=== PATIENT | female | born 1960 | race Asian ===

== ENCOUNTER 2024-10-07 06:46 | Day surgery (SDC) | payer OTHER, SELFPAY ==
[2024-10-07] VITALS (8 sets, daily range): BP systolic 131–155; BP diastolic 70–81; PULSE 66–74; RESP 16; TEMP 36.6; O2SAT 98–100
--- OUTSIDE RECORDS SUMMARY | 2024-10-07 06:50 | XMS_ITS | Clinical Summary ---
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 0 019 Active Pgpcc-4-ZGF-EPA-Fish Oil 1,000 mg (120 mg-180 mg) cap Take 1 capsule by mouth. 0 019 Active rosuvastatin (CRESTOR) 5 mg tabletIndications:Diabe catalina mellitus without complication (HC),Pure hypercholesterolemia Take 1 Tablet (5 mg) by mouth at bedtime. 90 Tablet 3 024 Active polyethylene glycol-electrolyte (GOLYTELY) 236-22.74-6.74 -5.86 gram suspensionIndications:E ncounter for screening colonoscopy Drink 2 liters the day before colonoscopy and 2 liters 6 hours before colonoscopy appointment 4000 mL 024 Active Active Problems Problem Noted Date Diagnosed Date Pure hypercholesterolemia 02/01/2024 Pap smear for cervical cancer screening 03/06/20 23 Overview (03/06/2023): 01/30/2023: NIL/HPV negative Plan: routine screening Routine adult health maintenance 05/02/2014 Overview (05/02/2014): Colonoscopy 04/2014 normal repeat in 10 years Type II or unspecified type diabetes mellitus without mention of complication, not stated as uncontrolled 02/14/2006 Immunizations Name Administration Dates Next Due AMB Influenza, IIV3 (Age >=3 years)(Flu Clinic Only) 07/26/2008 COVID-19 vaccine (Moderna 100mcg/0.5mL) PF, MDV 01/23/2021,12/26/2020 COVID-19 vaccine (Pfizer-Bio NTech 30mcg/0.3mL) PF, MDV 09/03/2021 HepA-HepB (Twinrix) 04/30/2015,03/06/2014,2002 Influenza Virus, Unspecified 06/22/2017 Influenza, IIV3 (Age >=3 years) 10/27/19 13,10/23/2010,09/01/2007,2005 Influenza,CCIIV4 PRESERV FREE 07/13/2018 Td (Age >=7 Years) 03/02/2003 Tdap 03/06/2014 Typhoid (injectable) 03/02/2003 Zoster (Shingrix-RZV, recombinant) 02/01/2024 Family History Medical History Relation Name Comments Other Sister brain cancer Cancer-breast No Family History Cancer-ovarian No Family History Relation Name Status Comments Mother Sister Social History Tobacco Use Types Packs/Day Years Used Date Smoking Tobacco: Never Smokeless Tobacco: Never Tobacco Cessation:Counseling Given: Yes Alcohol Use Standard Drinks/Week Comments No 0 (1 standard drink = 0.6 oz pur e alcohol) PHQ-2 Answer Date Recorded PHQ-2 TOTAL SCORE 0 02/01/2024 Social Connections Answer Date Recorded Frequency of Communication with Friends and Fami ly Not on file 2021 Financial Resource Strain Answer Date R ecorded Difficulty of Paying Living Expenses Not on file 2021 Difficulty of Paying Living Expenses Not on file 2021 Comments No Sex and Gender Information Value Date Recorded Sex Assigned at Not on file 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 Gender Identity Not on file Sexual Orientation Not on file Obstetrics History Para Term AB IAB SAB Ectopic Multiple Livin g Live Births 3 3 3 Date Outcome GA Total Labor Labor/2nd/3rd Weight Sex Type Anes PTL Angelica A1 A5 Name Clin Term Term Term Last Filed Vital Signs Vital Sign Reading Time Taken Comments Blood Pressure 111/59 03/29/2024 10:02 AM CDT Pulse 64 03/29/2024 10:02 AM CDT Temperature 36.9 C (98.5 F) 03/29/2024 8:53 AM CDT Respiratory Rate 14 03/29/2024 10:02 AM CDT Oxygen Saturation 97% 03/29/2024 10:02 AM CDT Inhaled Oxygen Concentration - - Weight 50.2 kg (110 lb 9.6 oz) 02/01/2024 10:19 AM CDT Height 146 cm (4' 9.48) 02/01/2024 10:19 AM CDT Body Mass Index 23.54 02/01/2024 10:19 AM CDT Plan of Treatment Health Maintenance Due Date Last Done Comments Pneumococcal series for age 6-49 (1 of 2 - PCV) 1966 HIV for age 15-65 1975 Tetanus booster 03/06/2024 03/06/2014, 03/02/2003 Zoster (shingles) series for age 50+ (2 of 2) 03/28/2024 02/01/2024 COVID-19 vaccine series ( season) 2024 09/03/2021, 01/23/2021, 12/26/2020 Influenza for age 50-64 06/05/2024 07/13/20 18, 06/22/2017, 10/27/2012, Additional history exists BMI (ht and wt on same day) for age 18+ 01/31/2025 02/01/2024, 01/30/2023, 01/28/2022, Additional history exists Depression screening for age 12+ 01/31/2025 02/01/2024, 02/01/2024, 01/30/2023, Additional history exists Mammogram for age 45-75 02/01/2025 02/02/20 24, 01/30/2023, 01/28/2022, Additional history exists Pap test for age 21-65 01/31/2028 3, 01/30/2023, 12/20/2019, Additional history exists Lipids for age 45-75 01/31/2029 02/01/2024, 01/30/2023, 01/28/2022, Additional history exists Colonoscopy through age 75 03/29/203403/294, 03/29/2024, 03/29/2024, Additional history exists RSV vaccine for adults or (1 - 1-dose 75+ series) 2035 Tdap Completed 03/06/2014 Hepatitis C screening for ag e 18-79 Completed 01/28/2022 Procedures Procedure Name Priority Date/Time Associated Diagnosis Comments COLONOSCOPY SCREENING Routine 03/29/2024 8:25 AM CDT Colon cancer screening XR MAMMO BILAT SCREENING Routine 02/02/2024 4:09 PM CDT Visit for screening mammogram LIPID PANEL W REFLEX MEASURED LDL Routine 02/01/2024 10:07 AM CDT Pure hypercholesterolemia HPV HIGH RISK Routine 01/30/2023 8:16 AM CDT Pap smear for cervical cancer screening ANTI HCV Routine 01/28/2022 10:12 AM CDT Encounter for hepatitis C screening test for low risk patient from Last 3 Months or Most Recently Relevant to Health Maintenance Results * COLONOSCOPY (03/29/2024 8:32 AM CDT) 03/29/2024 8:32 AM CDT Narrative Transcriptions Rogers Kong MD - 03/29/2024 9:56 AM CDT Patient Name: Cesar Vogel Procedure Date: 03/29/2024 Gender: Female Date of : 1960 Admit Type: Outpatient Procedure: Colonoscopy Proceduralist: Rogers Kong MD , Odilia Cam (Nurse), Samia Ha, HENRY (Nurse) Referring MD: Dasia Schulte Indications/Pre-Op Diagnosis: Screening for colorectal malignant neoplasm, Last colonoscopy: April 2014 Medications: Fentanyl 100 micrograms IV, Midazolam 2 mgIV Procedure Description: The patient had risks, benefits and alternatives explained to andgave informed consent. The patient had a stable cardiopulmonary status and judged an adequate candidate for conscious sedation. The endoscope PCF-H190L [id number] was passed through the anus andadvanced to the cecum, identified by appendiceal orifice and ileocecal valve.The colonoscopy was performed without difficulty. The patient toleratedthe procedure well. The quality of the bowel preparation was good. The ileocecal valve, appendiceal orifice, and rectum were photographed. Complications: No immediate complications. Estimated Blood Loss & Specimen: Estimated blood loss: none. Specimen collected - None Findings: The perianal and digital rectal examinations were normal. The entire examined colon appeared normal. Impressions/Post-Op Diagnosis: - The entire examined colon is normal. - No specimens collected. Recommendation: - Patient has a contact number available for emergencies. The signsand symptoms of potential delayed complications were discussed with the patient. Return to normal activities tomorrow. Written discharge instructions were provided to the patient. - Resume previous diet. - Continue present medications. - Repeat colonoscopy in 10 years for screening purposes. Moderate Sedation: A time out was performed before the procedure. Moderate (conscious) sedation was administered by the endoscopy nurse and supervised bythe endoscopist. The following parameters were monitored: oxygensaturation, heart rate, blood pressure, EKG, CO2, respiratory rate, adequacy of pulmonary ventilation and reponse to care. Please refer to the patient's medical record flowsheets and nursing notes for moderate sedation details. Total physician intraservice time was 16 minutes. Rogers Kong MD 03/29/2024 9:45:44 AM This report has been signed electronically. Note Initiated On: 03/29/2024 8:32 AM Procedure Code(s): --- Professional --- 70655, Colonoscopy, flexible; diagnostic, including collection of specimen(s) bybrushing or washing, when performed (separateprocedure) Diagnosis Code(s): --- Professional --- Z12.11, Encounter for screening formalignant neoplasm of colon CPT copyright 2022 [employer]. All rights reserved. The codes documented in this report are preliminary and upon dock supervisor reviewmay be revised to meet current compliance requirements. Scope In: 9:21:59 AM Scope Withdrawal Time 0 hours 7 minutes 19 seconds Scope Out: 9:35:11 AM Rogers Kong MD PROCEDURE ORD Edited Re sult - Final * XR MAMMO BILAT SCREENING (02/02/2024 4:09 PM CDT) Anatomical Region Laterality Modality BREASTS, Breast Left, Breast Right Bilateral Mammography Impressions 02/03/2024 2:42 PM CDT There is no radiographic evidence for malignancy. Recommend annual mammograms. MAMMOGRAM ASSESSMENT: ACR 1 Negative PATIENTS: You will also receive a letter with your examination results in an easy to read format. If you have questions about your results, please contact your referring provider. Narrative 02/03/2024 2:42 PM CDT For Patients: As a result of the Cures Act, medical imaging exams and procedure reports are released immediately into your electronic medical record. You may view this report before your referring provider. If you have questions, please contact your health care provider. XR MAMMO BILAT SCREENING [[id number]] CLINICAL HISTORY: This is an asymptomatic 63 y.o. patient. INDICATION FOR EXAM: Mammogram Screening. TECHNIQUE: CC & MLO views were obtained. This study was evaluated with the assistance of Computer-Aided Detection. COMPARISON FILM: Yes 01/30/23 [facility] 01/28/22 [facility] FINDINGS: The breasts are heterogeneously dense, which may obscure small masses. There are no dominant masses, suspicious micro calcifications or areas of architectural distortion. Luz Angelica Shaqra DO MAMMO Final Result * (ABNORMAL) LIPID PANEL W REFLEX MEASURED LDL (02/01/2024 10:07 AM CDT) CHOLESTEROL,TOTAL 196 100 - 199 mg/dL 02/01/2024 7:53 PM CDT [facility] Comment: Cholesterol, Total Reference Ranges Desirable <200 mg/dL Borderline 200-239 mg/dL High >=240 mg/dL TRIGLYCERIDES 113 <150 mg/dL 02/01/2024 7:53 PM CDT [facility] HDL CHOLESTEROL 46 >40 mg/dL 7:53 PM CDT [facility] NON-HDL CHOLESTEROL 150(H) <145 mg/dl 02/01/2024 7:53 PM CDT [facility] CHOL/HDL RATIO 4.26 <4.50 02/01/2024 7:53 PM CDT [facility] LDL CHOLESTEROL 127 <=130 mg/dL 02/01/2024 7:53 PM CDT [facility] VLDL CHOLESTEROL 23 <=30 mg/dL 02/01/2024 7:53 PM CDT [facility] PROVIDER ORDERED STATUS RANDOM 02/01/2024 7:53 PM CDT [facility] Blood BLOOD SPECIMEN / Unknown Butterfly / Unknown 02/01/2024 10:07 AM CDT 02/01/2024 10:08 AM CDT Dasia Schulte MD CHEMISTRY Fi nal Result [facility] [address] [place], [place] [address] * HPV HIGH RISK (01/30/2023 8:16 AM CDT) TYPE 16 Negative Negative 02/04/2023 1:46 PM CDT [facility] TYPE 18 Negative Negative 02/04/2023 1:46 PM CDT [facility] OTHER HIGH RISK TYPES Negative Negative 02/04/2023 1:46 PM CDT [facility] Other (Cervical) Non-Blood / Unknown 01/30/2023 8:16 AM CDT 02/02/2023 3:56 PM CDT Narrative [facility] - 02/04/2023 1:46 PM CDT HPV types 16, 18, 31, 33, 35, 39, 45, 51, 52, 56, 58, 59, 66 and 68 DNA were undetectable or below the pre-set threshold. Methodology: Hanh Coco 4800 HPV Test Njuice Petekeon STONE MICROBIOLOGY Final Result [facility] [address] [place] [address], * ANTI HCV (01/28/2022 10:12 AM CDT) HEPATITIS C ANTIBODY Non-React silvia Non-React silvia 01/28/2022 6:37 PM CDT [facility] Comment:Antibodies to HCV no t detected; does not exclude the possibility of exposure to HCV. Blood BLOOD SPECIMEN / Unknown Venipuncture / Unknown 01/28/2022 10:12 AM CDT 01/28/2022 10:13 AM CDT Njuice Petekeon STONE SEND OUTS Final Result Performing Organization Address City/[facility]/ZIP Co de Phone Number [facility] [address] [place] [address], from Last 3 Months or Most Recently Relevant to Health Maintenance Insurance [employer] [id number] [employer] Care Teams Propeller Driven Airplane Mechanic Relationship Specialty Start Date End Date Luz Reis DO [address] [place] [address] PCP - General Family Practice 10/16/23
[2024-10-07] MEDS: BUPIVACAINE 0.5% 30 ML INJECTION (07:15)
[2024-10-07] MEDS: LIDOCAINE 1%-EPI 1:100,000 20 ML INFILTRATI (07:15)
--- NOTE | 2024-10-07 07:16 | W.PM.H&PU ---
History & Physical Update History & Physical Update H&P Reviewed and patient assessed: No changes noted
--- NOTE | 2024-10-07 07:16 | PM.ORPRC ---
Procedure Note Date of procedure: 10/07/24 Procedure: PREOPERATIVE DIAGNOSIS: 1. Left carpal tunnel syndrome POSTOPERATIVE DIAGNOSIS: 1. Left carpal tunnel syndrome PROCEDURE: 1. Left open carpal tunnel release SURGEON: Jhonathan Evans MD. DIRECTOR PHARMACEUTICAL: Isabelle Rosenbaum P.A.-C. An delinquent tax collection assistant was critical for this case to aid in patient positioning, tissue retraction, limb manipulation/positioning, and closure. ANESTHESIA: Local anesthetic IMPLANTS: None ESTIMATED BLOOD LOSS: 0 mL TOURNIQUET: 8 min at 250 mmHg COMPLICATIONS: None evident INDICATIONS: The patient is a pleasant 64-year-old female with history of left hand numbness and tingling with electrodiagnostic studies that were consistent with left carpal tunnel syndrome. Symptoms were not improving with conservative treatment, and patient elected to proceed with surgical intervention consisting of left carpal tunnel release. Prior to surgery, the risks and benefits of the procedure were discussed with patient, all questions were answered, and informed consent was obtained. DESCRIPTION OF PROCEDURE: Patient was seen preoperatively and operative site was marked. The subcutaneous tissues overlying the left carpal tunnel were injected with a combination of 1% lidocaine and 0.25% bupivacaine with epinephrine. Patient was then brought to the operating room and placed in the supine position on the OR table. A tourniquet was placed on the patient's left arm and left upper extremity was prepped and draped in usual sterile fashion. A surgical time-out was performed confirming patient name, procedure, and location. The operative extremity was then elevated and exsanguinated with an Esmarch, and the tourniquet was inflated to 250 mmHg. A skin incision measuring approximately 3-4 cm was made in line with the ring finger extending from the distal wrist flexion crease to Hartley's cardinal line. Blunt dissection was used to dissect through subcutaneous tissues and palmar fascia. Transverse carpal ligament was identified and was sharply incised proximally with care taken to protect the underlying median nerve. The transverse carpal ligament was then sharply divided along its ulnar border using tenotomy scissors and a [place] blade with care taken to protect the underlying median nerve. Once the transverse carpal ligament was divided, the antebrachial fascia was released proximally. The wound was then irrigated with normal saline, and the tourniquet was released. Total tourniquet time was 8 minutes. Hemostasis was achieved with bipolar electrocautery. The skin incision was closed with 4-0 nylon horizontal mattress sutures, and a sterile dressing was applied. Patient was then transferred to the recovery room in stable condition. POSTOPERATIVE PLAN: 1. Patient will be discharged to home day of surgery. 2. Ice and elevation as needed for pain and swelling. 3. Tylenol and/or ibuprofen as needed for pain. Tramadol for breakthrough pain 4. They were given instructions for wound care and finger range of motion exercises. 5. Return to the clinic for follow-up evaluation in 10-14 days for wound check and suture removal.
[2024-10-07] MEDS: BACITRACIN OINTMENT BULK TUBE 1 APPLIC TOPICAL (07:51)
== END 2024-10-07 08:30 | disposition home or self-care (01) ==
PROVIDERS: Visit Provider Orthopaedic Surgery
PROC: (CPT 64721; principal; 2024-10-07 07:30)
DX: G56.02 Carpal tunnel syndrome, left upper limb (principal)
CPT/HCPCS: 64721; J0665